=== PATIENT | male | born 1935 | race African-American/Black ===

== ENCOUNTER 2017-12-22 15:05 | Emergency (ER) | payer OTHER, BC ==
--- NOTE | 2017-12-22 15:14 | PDOC ---
History of Present Illness - General Stated Complaint: STRONG HEART CHEST PAIN Time Seen by Provider: 12/22/17 15:13 History Source: Patient Exam Limitations: No Limitations - History of Present Illness Initial Comments: 12/22/17 15:57 Mr. Arzate is a 82 yo M with a hx of HIV, glaucoma, HTN, fibromyalgia, GERD, and arthritis who presents to the emergency department with worsening "aches" in both his legs from the plantar surface of the foot to the knee but denies pain. This has been occurring for 3 days, with progressive worsening. He states currently his aches are at 5/10 and that his pain level is at 0/10, but yesterday had an episode where the pain flared to 10/10 localized in his tibial region bilaterally that was sharp without radiation. Concurrent to this, he is having increased tingling in his legs. His last CD4 was in the 700-800s last month. He endorsed having chest pain yesterday that lasted for less than a minute in the center of his chest that was sharp in nature without radiation while at rest. Denies the following: fevers, headaches, recent visual changes, nausea/vomiting, recent immobilization/surgery, recent travel, hx of blood clots , trauma, dysuria, hematuria, diarrhea, and leg swelling. PMD: Dr. Gomez in [facility] hx: Denies tobacco, alcohol, and substance use. Meds: Denies anti-coagulant use. Uses Epzicom and isentress as HIV meds. Allergies: NKDA 12/22/17 18:11 Past History - Past Medical History Allergies/Adverse Reactions: Allergies Allergy/AdvReac Type Severity Reaction Status Date / Time No Known Allergies Allergy Verified 12/22/17 15:18 Home Medications: Ambulatory Orders Quetiapine Fumarate [Seroquel] 25 mg PO HS PRN 02/20/13 Abacavir Sulfate/Lamivudine [Epzicom Tablet] 1 tablet PO DAILY 11/10/15 Duloxetine HCl [Cymbalta] 20 mg PO DAILY 11/10/15 FENTANYL 50mcg PATCH [DURAGESIC 50mcg PATCH -] 2 each TD Q72H 11/10/15 Meloxicam 7.5 mg PO ASDIR PRN 11/10/15 Raltegravir [Isentress -] 400 mg PO BID 11/10/15 Albuterol 0.083% Nebulizer Gayle [Ventolin 0.083%] 1 neb NEB QID PRN 12/22/17 Amlodipine Besylate 5 mg PO DAILY 12/22/17 Brimonidine Tartrate [Alphagan 0.15% -] 1 drop OD TID 12/22/17 Latanoprost 0.005% Eye Drops [Xalatan 0.005% Eye Drops -] 1 drop HS 12/22/17 Prednisolone 1% Ophthalmic [Pred Forte 1% -] 0 ml OU BID 12/22/17 Timolol [Betimol] 5 ml OP 12/22/17 Asthma: Yes HTN: Yes - Immunization History Td Vaccination: No - Suicide/Smoking/Psychosocial Hx Smoking Status: No Smoking History: Never smoked Have you smoked in the past 12 months: No Number of Cigarettes Smoked Daily: 0 Hx Alcohol Use: No Drug/Substance Use Hx: No Substance Use Type: None Review of Systems - Review of Systems Able to Perform ROS?: Yes Constitutional: No: Chills, Diaphoresis, Fever HEENTM: No: Eye Pain, Recent change in vision, Ear Pain Heart Score/ECG Review - ECG Intrepretation Comment:: 12/22/17 19:49 ventricular rate 83, NV is 188, QRS is 86, and QTc is 448. Normal sinus rhythm no ST elevation or depressions./ ED Treatment Course - LABORATORY CBC & Chemistry Diagram: 12/22/17 17:00 12/22/17 17:00 Medical Decision Making - Medical Decision Making 12/22/17 18:20 82 yo M with hx of HIV, HTN, GERD, glaucoma, fibromyalgia 12/22/17 19:47 Note: The patient insists on leaving the emergency dept and is signing out against medical advice. The patient understands the risks and complications that may result from the refusal of medical care and admission which includes and permanent disability. The patient has the mental capacity of understanding the risks of refusing care and is capable of making an informed decision. The patient was instructed to return to the emergency department should [] change [] mind regarding medical care or should [] condition worsen. The patient signed the Against Medical Advice form. *DC/Admit/Observation/Transfer Diagnosis at time of Disposition: Leg pain Qualifiers: Laterality: bilateral Qualified Code(s): M79.604 - Pain in right leg - Discharge Dispostion Disposition: AGAINST MEDICAL ADVICE Decision to Admit order: No - Referrals Referrals: Boubacar Casiano MD [Staff Physician] - [facility] [Provider Group] - Patient Instructions Additional Instructions: You have been seen in the emergency department for your leg aches in both legs. We ran basic labs which were within normal limits. Your chest xray and ultrasound of your legs showed no acute pathologies. You are leaving against medical advice of admission for observation on a telemetry unit to do further work up of your chest pain from yesterday. Please follow up with Dr. Casiano and your primary medical doctor or the primary care team we referred you to at [facility]. Please take your medications as prescribed. Please return to the emergency department if you have worsening of symptoms or develop concerning new symptoms. - Post Discharge Activity
[2017-12-22 15:19] VITALS: TEMP 98.2; BMI 23.5
[2017-12-22] MEDS ORDERED: SODIUM CHLORIDE 0.9% 1000 ML INFUS.BAG IV ONE (17:29)
--- NOTE | 2017-12-22 17:29 | PDOC ---
Attending Attestation - Resident Resident Name: Alejo Hills - ED Attending Attestation I have performed the following: I have examined & evaluated the patient, The case was reviewed & discussed with the resident, I agree w/resident's findings & plan, Exceptions are as noted - HPI HPI: 12/22/17 17:25 82 yo male h/o GERD, HIV on meds, here with c/o chest pain happened yesterday and leg " achiness". states has been having aches in his legs. denies with exertion. denies associated swelling or sob. no f/c no cough. chest pain was brief. happened at rest. no mod factors. no h/o pe or dvt. currently feels better and aches have resolved. - Physicial Exam PE: 12/22/17 17:26 awake alert NAD. dry mucous membranes. facial wasting. lungs clear bilaterally. heart rrr no mrg. abd soft nt nd. skin warm and dry. 2 + pulses bilaterally. - Medical Decision Making 12/22/17 17:27 differential : myositis, dehydration electrolyte abnormality, meds side effect, angina, infeciton .plan labs ekg cxr trop. will d/w pt regarding admission for tele observation r/o acs. pending results of labs. signed out to DR Turner.
[2017-12-22 17:38] LABS: BASO % 0.7 % (0-2.0); EOS % 2.7 % (0-4.5); HEMATOCRIT 38.7 % (35.4-49); HEMOGLOBIN 13.4 GM/dL (11.7-16.9); LYMPH % 35.2 % (8-40); MCH 32.7 pg (25.7-33.7); MCHC 34.7 g/dl (32.0-35.9); MEAN CELL VOLUME 94.3 fl (80-96); MEAN PLT VOLUME 7.3 fl (7.5-11.1); MONO % 6.9 % (3.8-10.2); NEUT % 54.5 % (42.8-82.8); PLATELET COUNT 254 K/MM3 (134-434); RDW 13.7 % (11.9-15.9); WHITE BLOOD COUNT 5.6 K/mm3 (4.0-10.0)
[2017-12-22 17:50] LABS: INR 1.08 (0.83-1.09); PROTHROMBIN TIME (PATIENT) 12.2 SEC (9.7-13.0)
[2017-12-22 18:05] LABS: ALBUMIN 4.4 g/dl (3.4-5.0); ANION GAP 8 MMOL/L (8-16); BILIRUBIN,TOTAL 0.4 mg/dL (0.2-1.0); BLOOD UREA NITROGEN 11 mg/dL (7-18); CALCIUM 9.1 mg/dL (8.5-10.1); CHLORIDE 104 mmol/L (98-107); CO2 30 mmol/L (21-32); CREATININE 0.9 mg/dL (0.55-1.3); GLUCOSE,RANDOM 95 mg/dL (74-106); POTASSIUM 4.1 mmol/L (3.5-5.1); SGOT/AST 24 U/L (15-37); SGPT/ALT 29 U/L (13-61); SODIUM 142 mmol/L (136-145); TOT PROT 8.1 g/dl (6.4-8.2)
[2017-12-22 18:08] LABS: ALK PHOS 137 U/L (45-117)
[2017-12-22 20:16] VITALS: BP 132/82; PULSE 91
--- NOTE | 2017-12-23 09:16 | EKG ---
Test Reason : Blood Pressure : / mmHG Vent. Rate : 083 BPM Atrial Rate : 083 BPM P-R Int : 188 ms QRS Dur : 086 ms QT Int : 382 ms P-R-T Axes : 076 043 049 degrees QTc Int : 448 ms NORMAL SINUS RHYTHM NORMAL ECG WHEN COMPARED WITH ECG OF 11-NOV-2015 13:02, NO SIGNIFICANT CHANGE WAS FOUND Confirmed by NEO WARNER MD ([id number]) on 12/23/2017 9:16:29 AM Referred By: Confirmed By:NEO WARNER MD
== END 2017-12-22 19:45 | disposition left against medical advice (07) ==
LOC: JER 15:05
DX: M79.604 Pain in right leg (principal); I10 Essential (primary) hypertension; K21.9 Gastro-esophageal reflux disease without esophagitis; J45.909 Unspecified asthma, uncomplicated; M79.7 Fibromyalgia; H40.9 Unspecified glaucoma; M12.9 Arthropathy, unspecified; Z21 Asymptomatic human immunodeficiency virus [HIV] infection status
CPT/HCPCS: 36415; 71046-TC-FY; 80053; 82550; 82553; 84484; 85025; 85610; 86850; 86900; 86901; 93005; 93010; 93970-TC; 99284-25; J7030

== ENCOUNTER 2018-05-16 18:20 | Emergency (ER) | payer OTHER, BC ==
[2018-05-16 18:29] VITALS: BP 135/82; PULSE 98; TEMP 97.8; BMI 29.0
--- NOTE | 2018-05-16 18:42 | PDOC ---
History of Present Illness - General History Source: Patient Exam Limitations: No Limitations <Michel Carlisle - Last Filed: 05/16/18 18:35> - History of Present Illness Initial Comments: 05/16/18 18:46 The patient is a 82 year old male with a past medical history of HIV on medication, glaucoma, HTN, GERD, arthritis, and fibromyalgia who presents to the emergency department for evaluation of bilateral calf swelling. Patient reports acute onset of bilateral calf swelling this afternoon, denies pain. Patient reports visiting urgent care in [place] where provider recommended patient visit emergency department for ultrasound to rule out DVT. Patient reports waking up last night after midnight with bilateral calf aching, which he states he subsequently used an epsom salt bath with mild alleviation to his pain, allowing him to continue sleeping last night. The patient denies chest pain, abdominal pain, calf pain, shortness of breath, headache, and dizziness. Denies fevers, chills, nausea, vomiting, and any bowel/ urinary symptoms. Allergies: No known drug allergies Social History: No reported alcohol, cigarette, or drug use. Surgical History: Hearing implant left ear <Tram Mcfarland - Last Filed: 05/16/18 18:46> <Rose Nunez - Last Filed: 05/16/18 20:57> - General Chief Complaint: Edema Stated Complaint: FESTUS LEG SWELLING Time Seen by Provider: 05/16/18 18:25 Past History - Past Medical History Asthma: Yes COPD: No HTN: Yes Other medical history: GLAUCOMA, FIBROMYALGIA - Immunization History Td Vaccination: No - Suicide/Smoking/Psychosocial Hx Smoking Status: No Smoking History: Never smoked Have you smoked in the past 12 months: No Number of Cigarettes Smoked Daily: 0 Information on smoking cessation initiated: No Hx Alcohol Use: No Drug/Substance Use Hx: No Substance Use Type: None <Michel Carlisle - Last Filed: 05/16/18 18:35> <Tram Mcfarland - Last Filed: 05/16/18 18:46> <Rsoe Nunez - Last Filed: 05/16/18 20:57> - Past Medical History Allergies/Adverse Reactions: Allergies Allergy/AdvReac Type Severity Reaction Status Date / Time No Known Allergies Allergy Verified 05/16/18 18:22 Home Medications: Ambulatory Orders Quetiapine Fumarate [Seroquel] 25 mg PO HS PRN 02/20/13 Abacavir Sulfate/Lamivudine [Epzicom Tablet] 1 tablet PO DAILY 11/10/15 FENTANYL 50mcg PATCH [DURAGESIC 50mcg PATCH -] 2 each TD Q72H 11/10/15 Raltegravir [Isentress -] 400 mg PO BID 11/10/15 Amlodipine Besylate 10 mg PO DAILY 12/22/17 Brimonidine Tartrate [Alphagan 0.15% -] 1 drop OD BID 12/22/17 Latanoprost 0.005% Eye Drops [Xalatan 0.005% Eye Drops -] 1 drop OP HS 12/22/17 Timolol [Betimol] 1 drop OP BID 12/22/17 Review of Systems - Review of Systems Comments:: GENERAL/CONSTITUTIONAL: No fever or chills. No weakness. HEAD, EYES, EARS, NOSE AND THROAT: No change in vision. No ear pain or discharge. No sore throat. CARDIOVASCULAR: No chest pain or shortness of breath. RESPIRATORY: No cough, wheezing, or hemoptysis. GASTROINTESTINAL: No nausea, vomiting, diarrhea or constipation. GENITOURINARY: No dysuria, frequency, or change in urination. MUSCULOSKELETAL: (+)Bilateral calf swelling. No joint or muscle pain. No neck or back pain. SKIN: No rash NEUROLOGIC: No headache, vertigo, loss of consciousness, or change in strength/ sensation. ENDOCRINE: No increased thirst. No abnormal weight change. HEMATOLOGIC/LYMPHATIC: No anemia, easy bleeding, or history of blood clots. ALLERGIC/IMMUNOLOGIC: No hives or skin allergy. <Tram Mcfarland - Last Filed: 05/16/18 18:46> *Physical Exam - Vital Signs Last Vital Signs Temp Pulse Resp BP Pulse Ox 97.8 F 98 H 18 135/82 97 05/16/18 18:20 05/16/18 18:20 05/16/18 18:20 05/16/18 18:20 05/16/18 18:20 <Michel Carlisle - Last Filed: 05/16/18 18:35> - Vital Signs Last Vital Signs Temp Pulse Resp BP Pulse Ox 97.8 F 98 H 18 135/82 97 05/16/18 18:20 05/16/18 18:20 05/16/18 18:20 05/16/18 18:20 05/16/18 18:20 - Physical Exam Comments: GENERAL: Awake, alert, and fully oriented, in no acute distress HEAD: No signs of trauma EYES: PERRLA, EOMI, sclera anicteric, conjunctiva clear NECK: Normal ROM, supple, no JVD. LUNGS: Breath sounds equal, clear to auscultation bilaterally. No wheezes, and no crackles EXTREMITIES: (+)Trace pitting edema in lower extremities bilaterally.Wing sign negative, no calf tenderness. Sensation and strength intact throughout. NEUROLOGICAL: Cranial nerves II through XII grossly intact. Normal speech, normal gait SKIN: Warm, Dry, normal turgor, no rashes or lesions noted. <Tram Mcfarland - Last Filed: 05/16/18 18:46> - Vital Signs Last Vital Signs Temp Pulse Resp BP Pulse Ox 97.8 F 98 H 18 135/82 97 05/16/18 18:20 05/16/18 18:20 05/16/18 18:20 05/16/18 18:20 05/16/18 18:20 <Rose Nunez - Last Filed: 05/16/18 20:57> Moderate Sedation - Procedure Monitoring Vital Signs: Procedure Monitoring Vital Signs Temperature 97.8 F 05/16/18 18:20 Pulse Rate 98 H 05/16/18 18:20 Respiratory Rate 18 05/16/18 18:20 Blood Pressure 135/82 05/16/18 18:20 O2 Sat by Pulse Oximetry (%) 97 05/16/18 18:20 <Michel Carlisle - Last Filed: 05/16/18 18:35> - Procedure Monitoring Vital Signs: Procedure Monitoring Vital Signs Temperature 97.8 F 05/16/18 18:20 Pulse Rate 98 H 05/16/18 18:20 Respiratory Rate 18 05/16/18 18:20 Blood Pressure 135/82 05/16/18 18:20 O2 Sat by Pulse Oximetry (%) 97 05/16/18 18:20 <Tram Mcfarland - Last Filed: 05/16/18 18:46> - Procedure Monitoring Vital Signs: Procedure Monitoring Vital Signs Temperature 97.8 F 05/16/18 18:20 Pulse Rate 98 H 05/16/18 18:20 Respiratory Rate 18 05/16/18 18:20 Blood Pressure 135/82 05/16/18 18:20 O2 Sat by Pulse Oximetry (%) 97 05/16/18 18:20 <Rose Nunez - Last Filed: 05/16/18 20:57> ED Treatment Course - RADIOLOGY Radiology Studies Ordered: Category Date Time Status DUPLEX VASCUL US-2LEGS [US] Stat Ultrasound 05/16/18 18:34 Ordered <Michel Carlisle - Last Filed: 05/16/18 18:35> Medical Decision Making - Medical Decision Making 05/16/18 18:39 A portion of this note was written by my scribe, under my supervision. Vital Signs Temp Pulse Resp BP Pulse Ox 97.8 F 98 H 18 135/82 97 05/16/18 18:20 05/16/18 18:20 05/16/18 18:20 05/16/18 18:20 05/16/18 18:20 82 year old male c/ hxof HIV, fibromyalgia, glaucoma, GERD, arthritis, HTN sent in from urgent care for duplex of lower extremities. Yesterday, pt was in his usual state of health. This morning, pt felt some cramps in his bilateral calf and noted some swelling. Never had a hx of DVTs or PEs. Went to urgent care and notd that he had R > L lower extremity edema. Pt was sent to ER for duplexes. However, the pt noted that the the swelling went down significantly on his way here. No chest pain or SOB. Now has trace lower extremity edema. It is unclear what the etiology is. however, will obtain lower extremity duplexes b/l If negative, pt can be d/c home with supportive care and follow up with PMD. <Michel Carlisle - Last Filed: 05/16/18 18:35> *DC/Admit/Observation/Transfer <Michel Carlisle - Last Filed: 05/16/18 18:35> - Attestations Scribe Attestion: Documentation prepared by Tram Mcfarland, acting as medical laboratory technicians for Michel Carlisle MD. <Tram Mcfarland - Last Filed: 05/16/18 18:46> <Rose Nunez - Last Filed: 05/16/18 20:57> Diagnosis at time of Disposition: Bilateral leg edema - Discharge Dispostion Disposition: HOME Condition at time of disposition: Stable - Patient Instructions Printed Discharge Instructions: DI for Peripheral Edema -- Bilateral Additional Instructions: elevate legs as much as possible, especially at night return to ER if legs are painful or swelling is severe
--- NOTE | 2018-05-17 03:09 | PDOC ---
*Physical Exam - Vital Signs Last Vital Signs Temp Pulse Resp BP Pulse Ox 97.8 F 98 H 18 135/82 97 05/16/18 18:20 05/16/18 18:20 05/16/18 18:20 05/16/18 18:20 05/16/18 18:20 Medical Decision Making - Medical Decision Making Care of this patient received from Dr. Carlisle. Doppler duplex studies of bilateral legs performed: No evidence of DVT Patient discharged with instructions to elevate legs especially at night when edema is noted. He should follow-up with his doctor within the next few days. He should return to ER if he has severe and persistent leg edema *DC/Admit/Observation/Transfer Diagnosis at time of Disposition: Bilateral leg edema - Discharge Dispostion Disposition: HOME Condition at time of disposition: Stable - Referrals - Patient Instructions Printed Discharge Instructions: DI for Peripheral Edema -- Bilateral Additional Instructions: elevate legs as much as possible, especially at night return to ER if legs are painful or swelling is severe - Post Discharge Activity
== END 2018-05-16 21:00 | disposition home or self-care (01) ==
LOC: FER 18:20
DX: R60.0 Localized edema (principal); I10 Essential (primary) hypertension; Z21 Asymptomatic human immunodeficiency virus [HIV] infection status; M19.90 Unspecified osteoarthritis, unspecified site; M79.7 Fibromyalgia; J45.909 Unspecified asthma, uncomplicated
CPT/HCPCS: 93970-TC; 99283-25